=== PATIENT | male | born 1970 | race Caucasian/White ===

== ENCOUNTER 2017-03-01 12:58 | Emergency (ER) | payer OTHER ==
[~2017-03-01] VITALS: Ht 172.7 cm; Wt 79.4 kg
[~2017-03-01 12:58] MED LIST: GENTAK5 ML OPHT; KETO10TA2 PO
== END 2017-03-01 18:43 | disposition home or self-care (01) ==
LOC: ER 12:58
DX: S90.32XA Contusion of left foot, initial encounter (principal); W22.8XXA Striking against or struck by other objects, initial encounter; Y93.89 Activity, other specified; Y92.69 Other specified industrial and construction area as the place of occurrence of the external cause; Y99.8 Other external cause status

== ENCOUNTER 2017-03-06 13:11 | Emergency (ER) | payer OTHER ==
[~2017-03-06] VITALS: Ht 172.7 cm; Wt 79.4 kg
[2017-03-06] MEDS ORDERED: DICLOFENAC SODI50 MG PO (15:11)
== END 2017-03-06 15:57 | disposition home or self-care (01) ==
LOC: ER 13:11
DX: G89.11 Acute pain due to trauma (principal); M79.672 Pain in left foot

== ENCOUNTER 2017-10-06 01:08 | Inpatient (IN) | payer OTHER ==
[~2017-10-06] VITALS: Ht 172.7 cm; Wt 77.1 kg
[~2017-10-06 01:08] MED LIST changes: +DICLOFENAC SODI50 MG PO
== END 2017-10-10 20:03 | disposition home or self-care (01) | DRG 392 ==
LOC: ER 01:08 → MEDI 12:39
PROC: BW25Y0Z Computerized Tomography (CT Scan) of Chest, Abdomen and Pelvis using Other Contrast, Unenhanced and Enhanced (ICD-10-PCS; principal; 2017-10-06)
PROC: BW40ZZZ Ultrasonography of Abdomen (ICD-10-PCS; 2017-10-06)
DX: K57.32 Diverticulitis of large intestine without perforation or abscess without bleeding (principal)

== ENCOUNTER → 2018-03-20 | Emergency (ER) | payer OTHER ==
[~2018-03-20] VITALS: Ht 172.7 cm; Wt 74.8 kg
== END | disposition designated cancer center or children's hospital (05) ==
LOC: ER 20:11
DX: S02.69XA Fracture of mandible of other specified site, initial encounter for closed fracture (principal); S02.2XXA Fracture of nasal bones, initial encounter for closed fracture; W10.8XXA Fall (on) (from) other stairs and steps, initial encounter; Y93.89 Activity, other specified; Y92.89 Other specified places as the place of occurrence of the external cause; Y99.8 Other external cause status; S80.01XA Contusion of right knee, initial encounter

== ENCOUNTER 2019-07-14 18:27 | Emergency (ER) | payer OTHER ==
[~2019-07-14] VITALS: Ht 172.7 cm; Wt 74.8 kg
== END 2019-07-14 19:41 | disposition home or self-care (01) ==
LOC: ER 18:27
DX: L03.115 Cellulitis of right lower limb (principal); S80.861A Insect bite (nonvenomous), right lower leg, initial encounter; W57.XXXA Bitten or stung by nonvenomous insect and other nonvenomous arthropods, initial encounter; Y93.89 Activity, other specified; Y92.89 Other specified places as the place of occurrence of the external cause; Y99.8 Other external cause status

== ENCOUNTER 2020-05-09 14:30 | Emergency (ER) | payer OTHER ==
[~2020-05-09] VITALS: Ht 172.7 cm; Wt 70.3 kg
[2020-05-09] MEDS ORDERED: CIPRO500 MG PO (18:46)
[2020-05-09] MEDS ORDERED: DICY20TA PO (18:46)
[2020-05-09] MEDS ORDERED: PEPCID20 MG PO (18:46)
== END 2020-05-09 18:50 | disposition home or self-care (01) ==
LOC: ER 14:30
DX: R10.31 Right lower quadrant pain (principal); R10.32 Left lower quadrant pain

== ENCOUNTER 2020-07-21 11:44 | Emergency (ER) | payer OTHER ==
[~2020-07-21] VITALS: Ht 177.8 cm; Wt 72.6 kg
[~2020-07-21 11:44] MED LIST changes: +CIPRO500 MG PO; +DICY20TA PO; +PEPCID20 MG PO
== END 2020-07-21 14:37 | disposition home or self-care (01) ==
LOC: ER 11:44
DX: K52.9 Noninfective gastroenteritis and colitis, unspecified (principal); Z11.52 Encounter for screening for COVID-19

== ENCOUNTER 2020-10-07 19:41 | Emergency (ER) | payer OTHER ==
[~2020-10-07] VITALS: Ht 172.7 cm; Wt 71.2 kg
[2020-10-08] MEDS ORDERED: IBU800 MG PO (00:36)
[2020-10-08] MEDS ORDERED: NORFLEX100MG PO (00:36)
== END 2020-10-08 01:24 | disposition home or self-care (01) ==
LOC: ER 19:41
DX: M54.2 Cervicalgia (principal); M79.671 Pain in right foot

== ENCOUNTER 2021-01-28 10:27 | Emergency (ER) | payer OTHER ==
[~2021-01-28] VITALS: Ht 172.7 cm; Wt 74.4 kg
[~2021-01-28 10:27] MED LIST changes: +IBU800 MG PO; +NORFLEX100MG PO
== END 2021-01-28 14:42 | disposition home or self-care (01) ==
LOC: ER 10:27
DX: H92.02 Otalgia, left ear (principal); D72.819 Decreased white blood cell count, unspecified

== ENCOUNTER 2021-11-12 09:30 | Emergency (ER) | payer OTHER ==
[~2021-11-12] VITALS: Ht 172.7 cm; Wt 72.6 kg
== END 2021-11-12 10:14 | disposition home or self-care (01) ==
LOC: ER 09:30
DX: T78.1XXA Other adverse food reactions, not elsewhere classified, initial encounter (principal); X58.XXXA Exposure to other specified factors, initial encounter; R42 Dizziness and giddiness